=== PATIENT | male | born 1985 | race Asian ===

== ENCOUNTER 2023-12-17 10:15 | Emergency (ER) | payer OTHER ==
[~2023-12-17] VITALS: Ht 157.5 cm; Wt 54.4 kg
[2023-12-17 11:06] VITALS: BP_SYST 138; PULSE 85; RESP 20; TEMP 98.5; O2SAT 98
[2023-12-17 13:45] VITALS: BP_SYST 138; PULSE 85; RESP 20; TEMP 98.5; O2SAT 98
== END 2023-12-17 11:22 | disposition home or self-care (01) ==
LOC: SED 10:15
DX: L73.8 Other specified follicular disorders (principal)
CPT/HCPCS: 99281